=== PATIENT | male | born 1950 | race Asian ===

== ENCOUNTER 2022-12-14 08:58 | Outpatient (CLI) | payer OTHER ==
[2022-12-14] MEDS ORDERED: Iopamidol 300 61% 100 ML VIAL FS ONE (12:08)
== END 2022-12-14 08:59 | disposition home or self-care (01) ==
LOC: CSHCT 08:58
PROVIDERS: ATTEND Family Medicine
DX: E87.1 Hypo-osmolality and hyponatremia (principal); K59.00 Constipation, unspecified
CPT/HCPCS: 71260; 74177; Q9967